=== PATIENT | male | born 1980 | race Two or more races ===

== ENCOUNTER 2020-04-22 11:26 | Emergency (ER) | payer OTHER ==
[~2020-04-22] VITALS: Ht 167.6 cm; Wt 72.6 kg
[~2020-04-22 11:26] MED LIST: VISTARIL25 MG PO
[2020-04-22] MEDS ORDERED: BENADRYL25 MG PO (13:04)
[2020-04-22] MEDS ORDERED: DUI500 PO (13:04)
== END 2020-04-22 13:05 | disposition home or self-care (01) ==
LOC: ER 11:26
DX: S91.351A Open bite, right foot, initial encounter (principal); W56.51XA Bitten by other fish, initial encounter; Y93.89 Activity, other specified; Y92.832 Beach as the place of occurrence of the external cause; Y99.8 Other external cause status

== ENCOUNTER 2023-06-26 10:05 | Emergency (ER) | payer OTHER ==
[~2023-06-26] VITALS: Ht 167.6 cm; Wt 72.6 kg
[~2023-06-26 10:05] MED LIST changes: +BENADRYL25 MG PO; +DUI500 PO
== END 2023-06-26 14:43 | disposition home or self-care (01) ==
LOC: ER 10:05
DX: S00.81XA Abrasion of other part of head, initial encounter (principal); W22.8XXA Striking against or struck by other objects, initial encounter; Y93.89 Activity, other specified; Y92.89 Other specified places as the place of occurrence of the external cause; Z91.013 Allergy to seafood; Z88.6 Allergy status to analgesic agent